=== PATIENT | male | born 1935 | race Caucasian/White ===

== ENCOUNTER 2023-08-14 15:31 | Emergency (ER) | payer BC ==
[~2023-08-14] VITALS: Ht 180.3 cm; Wt 86.4 kg
[2023-08-14 15:33] VITALS: TEMP 97.4
[2023-08-14] MEDS ORDERED: hydrALAZINE 20 MG/ML 1 ML VIAL IV ONE (16:15)
[2023-08-14] MEDS ORDERED: ASPIRIN 81M81 MG/TA2 PO (16:26)
[2023-08-14] MEDS ORDERED: COREG12.5 MG PO (16:27)
[2023-08-14] MEDS ORDERED: PLAVIX 75MG TAB75 MG PO (16:27)
[2023-08-14] MEDS ORDERED: CARDURA 8MG TAB8 MG PO (16:28)
[2023-08-14] MEDS ORDERED: CYMBALTA 60MG60 MG PO (16:28)
[2023-08-14] MEDS ORDERED: BENICAR40 MG PO (16:29)
[2023-08-14] MEDS ORDERED: PROSCAR 5MG5 MG PO (16:29)
[2023-08-14] MEDS ORDERED: CRESTOR40 MG PO (16:30)
[2023-08-14] MEDS ORDERED: LOFIBRA160 MG PO (16:30)
[2023-08-14] MEDS ORDERED: ZETIA 10MG TAB10 MG PO (16:30)
[2023-08-14 16:39] LABS: BASO % 0.3 % (0.0-2.0); EOS # 0.1 K/mm3 (0.0-0.7); EOS % 1.7 % (0.0-4.0); GRAN # 5.3 K/mm3 (1.4-6.5); GRAN % 82.2 % (42.2-75.2); HEMATOCRIT 41.3 % (42.0-52.0); HEMOGLOBIN 13.5 g/dl (13.5-18.0); LYMPH # 0.8 K/mm3 (1.2-3.4); LYMPH % 12.5 % (20.0-51.0); MEAN CELL VOLUME 92 fl (80.0-100.0); MEAN CORPUSCULAR HEMOGLOBIN 30 pg (27-31); MEAN CORPUSCULAR HGB CONC 33 g/dl (33.0-37.0); MEAN PLATELET VOLUME 9.4 fl (7.4-10.4); MONO # 0.2 K/mm3 (0.1-0.6); MONO % 2.8 % (1.7-9.3); PLATELET COUNT 160 K/mm3 (130-400); RED BLOOD COUNT 4.47 M/mm3 (4.20-5.60); REDCELL DISTRIBUTION WIDTH-CV 13.6 % (11.5-14.5)
[2023-08-14 16:56] LABS: ALBUMIN 4.1 g/dL (3.4-4.8); BILIRUBIN,TOTAL 0.3 mg/dL (0.2-1.2); CALCIUM 10.4 mg/dL (8.4-10.2); CREATININE, serum 1.38 mg/dL (0.72-1.25); POTASSIUM 4.6 mEq/L (3.5-4.5); TOTAL PROTEIN 7.8 g/dl (6.2-8.1)
[2023-08-14 17:02] LABS: TROPONIN-I 0.012 ng/mL (0.00-0.033)
[2023-08-14 18:26] LABS: URINE APPEARANCE CLEAR (CLEAR/HAZY); URINE BLOOD NEGATIVE (NEGATIVE); URINE COLOR YELLOW (YELLOW); URINE GLUCOSE NEGATIVE (NEGATIVE); URINE KETONE NEGATIVE (NEGATIVE); URINE NITRATE NEGATIVE (NEGATIVE); URINE PROTEIN(semi-quant) TRACE (NEGATIVE); URINE UROBILINOGEN 0.2 E.U/dL (0.2-1.0)
[2023-08-14 18:44] LABS: COLLECTION METHOD CLEAN CATCH
[2023-08-14 19:32] VITALS: BP 147/86; PULSE 82
== END 2023-08-14 19:33 | disposition home or self-care (01) ==
LOC: COL.ER 15:31
PROVIDERS: Physician Assistant
DX: I16.0 Hypertensive urgency (principal); R55 Syncope and collapse; I10 Essential (primary) hypertension; Z79.899 Other long term (current) drug therapy
CPT/HCPCS: J0360